=== PATIENT | female | born 1935 ===

== ENCOUNTER 2023-10-04 23:59 | Outpatient (BNV) | payer MEDICARE, SELFPAY | END 2023-10-05 23:59 | PROVIDERS: Visit Provider Internal Medicine | DX: I21.4 Non-ST elevation (NSTEMI) myocardial infarction (principal); I50.31 Acute diastolic (congestive) heart failure; I25.10 Atherosclerotic heart disease of native coronary artery without angina pectoris; J18.9 Pneumonia, unspecified organism | CPT/HCPCS: 99223 ==